=== PATIENT | male | born 2000 | race Hispanic/Latino ===

== ENCOUNTER 2022-01-20 14:49 | Emergency (ER) | payer MEDICAID ==
[~2022-01-20] VITALS: Ht 180.3 cm; Wt 85.0 kg
[2022-01-20 15:27] LABS: HEMATOCRIT 43.7 % (39.0-50.0); HEMOGLOBIN 15.5 g/dl (14.0-18.0); IMMATURE GRANULOCYTES 0.1 % (0.0-5.0); MEAN CELL VOLUME 87.6 fL CALC (80.0-100.0); MEAN CORPUSCULAR HGB 31.1 pG CALC (26.0-32.0); MEAN CORPUSCULAR HGB CONC 35.5 g/dL CAL (32.0-36.0); NEUT# 5.17 thou/uL (1.82-7.42); RED BLOOD COUNT 4.99 mill/uL (4.70-6.10); RED CELL DISTRI WIDTH 11.7 % (11.5-15.5)
[2022-01-20 15:36] LABS: ALBUMIN 4.9 g/dL (3.2-5.0); ALKALINE PHOSPHATASE 56 u/l (38-126); ANION GAP 12 (6-22 (CALC)); BILIRUBIN, TOTAL 0.7 mg/dL (0.0-1.4); BUN 13 mg/dL (9-20); BUN/CREATININE RATIO 15 (12-20 (CALC)); CARBON DIOXIDE 31 mmol/l (22-30); CHLORIDE 103 mmol/l (95-108); CREATININE 0.9 mg/dL (0.7-1.3); GFR FOR AFR.AMER. > 60 ML/MIN (>=60 (CALC)); GFR OTHER RACES > 60 ML/MIN (>=60 (CALC)); POTASSIUM 3.8 mmol/l (3.5-5.1); SGOT/AST 26 u/l (17-59); SODIUM 142 mmol/l (137-146); TOTAL PROTEIN 8.2 g/dL (6.3-8.2)
[2022-01-20 16:57] LABS: MAGNESIUM 2.1 mg/dL (1.6-2.3)
[2022-01-20 17:29] LABS: TSH, 3RD GENERATION 1.71 uIU/mL (0.47 - 4.68)
[2022-01-20 18:52] VITALS: BP 150/84
== END 2022-01-20 19:00 | disposition home or self-care (01) ==
LOC: ED 14:49
PROVIDERS: Family Medicine; Nurse Practitioner
DX: R00.2 Palpitations (principal); F17.210 Nicotine dependence, cigarettes, uncomplicated